=== PATIENT | male | born 1975 | race Two or more races ===

== ENCOUNTER 2021-08-12 11:32 | Outpatient (REF) | payer MEDICAID, SELFPAY ==
--- NOTE | ~2021-08-12 | XR_ITS ---
EXAMINATION: XR ANKLE, LEFT CLINICAL INFORMATION: Left ankle pain COMPARISON: None TECHNIQUE: AP, lateral, and mortise views of the left ankle. FINDINGS: No fracture or dislocation. The ankle mortise is congruent. There is small ankle joint effusion noted. Small osteophytes. Mild hypertrophic spurring of the plantar aponeurosis and Achilles insertion to the calcaneus. XR/XR ankle LT min 3V IMPRESSION: Small joint effusion. No acute osseous abnormality. Mild degenerative change. Small heel spurs.
== END 2021-08-12 11:33 | disposition home or self-care (01) ==
LOC: HO.XRAY 11:32
PROVIDERS: Visit Provider Nurse Practitioner Primary Care
DX: M25.572 Pain in left ankle and joints of left foot (principal)
CPT/HCPCS: 73610

== ENCOUNTER 2021-09-30 11:00 | Outpatient (RCR) | payer MEDICAID, SELFPAY | END 2021-10-28 09:50 | disposition home or self-care (01) | LOC: HO.PT 11:00 | PROVIDERS: PCP Nurse Practitioner Primary Care; Visit Provider Nurse Practitioner Primary Care | DX: M25.572 Pain in left ankle and joints of left foot (principal) | CPT/HCPCS: 97110; 97140; 97161; 97530 ==